=== PATIENT | female | born 1970 | race Caucasian/White ===

== ENCOUNTER 2021-11-24 11:11 | Emergency (ER) | payer SELFPAY ==
--- NOTE | 2021-11-24 12:41 | RAD REPORT ---
EXAM DESCRIPTION: CT - Head Brain Wo Cont - 11/24/2021 12:35 pm CLINICAL HISTORY: Head trauma, moderate-severe Fall, head injury, head trauma COMPARISON: C Spine Wo Con dated 11/24/2021 TECHNIQUE: All CT scans are performed using dose optimization technique as appropriate and may inclu de automated exposure control or mA/KV adjustment according to patient size. FINDINGS: No intracranial hemorrhage, hydrocephalus or extra-axial fluid collection.No areas of brai n edema or evidence of midline shift. The paranasal sinuses and mastoids are clear. The calvarium is intact. IMPRESSION: No acute intracranial abnormality.
--- NOTE | 2021-11-24 12:42 | RAD REPORT ---
EXAM DESCRIPTION: CT - C Spine Wo Con - 11/24/2021 12:35 pm CLINICAL HISTORY: Osteoarthritis, cervical COMPARISON: No comparisons TECHNIQUE: CT Scan was obtained of the cervical spine without contrast. Reformats were provided in t he sagittal and coronal plane. FINDINGS: No acute fracture of the cervical spine. No traumatic malalignment. No prevertebral edema. Multilevel cervical spondylosis with varying degrees of neural foraminal narrowing. This is advanced at the C6-7 and to lesser extent C5-6 levels. No suspicious thyroid nodules or lymphadenopathy. The lung apices are clear. IMPRESSION: No fracture or traumatic malalignment of the cervical spine.
--- NOTE | 2021-11-24 12:56 | ER ---
Nurse's Notes [facility] Name: Betsy Phillips Age: 51 yrs Sex: Female : 1970 Arrival Date: 11/24/2021 Time: 11:28 Bed 13 Private MD: Diagnosis: Unspecified injury of head, initial encounter Presentation: 11/24 11:34 Chief complaint: Patient states: "I am an alcoholic and I've been sober for 7 years and ab2 I relapsed last week and I fell on Sunday and hit my head. I went to [facility] in [place] and they did nothing. I have a headache, I am hallucinating, and I have a pins and needles sensation on my arms." Pt states her last drink was Sunday. Pt unsure if she had LOC. Pt c/o headache on the right side of her head. Pt has small laceration to left side fo forehead. Coronavirus screen: Vaccine status: Patient reports receiving the 2nd dose of the covid vaccine. Client denies travel out of the [place] in the last 14 days. At this time, the client does not indicate any symptoms associated with coronavirus-19. Ebola Screen: Patient negative for fever greater than or equal to 101.5 degrees Fahrenheit, and additional compatible Ebola Virus Disease symptoms Patient denies exposure to infectious person. Patient denies travel to an Ebola-affected area in the 21 days before illness onset. No symptoms or risks identified at this time. Mechanism of Injury: resulted from a fall, from a standing position. Initial Sepsis Screen: Does the patient meet any 2 criteria? No. Patient's initial sepsis screen is negative. Does the patient have a suspected source of infection? No. Patient's initial sepsis screen is negative. Risk Assessment: Do you want to hurt yourself or someone else? Patient reports no desire to harm self or others. 11:34 Method Of Arrival: Ambulatory ab2 11:34 Acuity: HUONG 3 ab2 12:51 Onset of symptoms is unknown. jg9 Triage Assessment: 11:38 General: Appears in no apparent distress. uncomfortable, Behavior is calm, cooperative, ab2 appropriate for age. Pain: Complains of pain in head. Neuro: Level of Consciousness is awake, alert, obeys commands, Oriented to person, place, time, situation, Appropriate for age Talent Analyst are equal bilaterally Moves all extremities. Gait is steady, Speech is normal, Facial symmetry appears normal, Intact Reports headache. Respiratory: Airway is patent Respiratory effort is even, unlabored, Respiratory pattern is regular, symmetrical. PULMONARY PHYSICIAN: 12:51 LMP N/A - Irregular menses jg9 Historical: - Allergies: 11:38 No Known Allergies; ab2 - PMHx: 11:38 None; ab2 - Immunization history:: Adult Immunizations up to date. - Social history:: Smoking status: Patient reports the use of cigarette tobacco products, smokes one-half pack cigarettes per day. - Family history:: not pertinent. Screenin:51 Abuse screen: Denies threats or abuse. Denies injuries from another. Nutritional jg9 screening: No deficits noted. Tuberculosis screening: No symptoms or risk factors identified. Fall Risk Fall in past 12 months (25 points). Assessment: 12:51 Reassessment: No changes from previously documented assessment. Patient and/or family jg9 updated on plan of care and expected duration. Pain level reassessed. Patient is alert, oriented x 3, equal unlabored respirations, skin warm/dry/pink. Vital Signs: 11:34 BP 137 / 92; Pulse 87; Resp 18; Temp 97.7(TE); Pulse Ox 99% on R/A; Weight 83.46 kg; ab2 Height 5 ft. 9 in. (175.26 cm); Pain 6/10; 12:55 BP 117 / 65; Pulse 66; Resp 14 S; Pulse Ox 98% on R/A; jg9 11:34 Body Mass Index 27.17 (83.46 kg, 175.26 cm) ab2 [place] Coma Score: 11:34 Eye Response: spontaneous(4). Verbal Response: oriented(5). Motor Response: obeys ab2 commands(6). Total: 15. 12:54 Eye Response: spontaneous(4). Verbal Response: oriented(5). Motor Response: obeys ma2 commands(6). Total: 15. ED Course: 11:28 Patient arrived in ED. am2 11:38 Triage completed. ab2 11:38 Arm band placed on right wrist. ab2 11:39 Paulette Strong RN is Primary Nurse. jg9 11:49 Katie Borges MD is Attending Physician. ma2 12:37 CT Head Brain wo Cont In Process Unspecified. EDMS 12:37 CT C Spine In Process Unspecified. EDMS 12:51 Patient has correct armband on for positive identification. Bed in low position. Call jg9 light in reach. Side rails up X 1. 13:14 No provider procedures requiring assistance completed. jg9 13:15 Patient did not have IV access during this emergency room visit. jg9 Administered Medications: No medications were administered Outcome: 12:55 Discharge ordered by . ma2 13:15 Discharged to home ambulatory. jg9 13:15 Condition: stable 13:15 Discharge instructions given to patient, Instructed on discharge instructions, follow up and referral plans. Demonstrated understanding of instructions, follow-up care. 13:15 Patient left the ED. jg9 Signatures: Dispatcher [employer] Nakia Mancilla am2 Katie Borges MD MD ma2 Paulette Strong, RN RN jg9 Brian [place]
--- NOTE | 2021-11-24 12:56 | EDPHYS ---
Physician Documentation [facility] Name: Betsy Phillips Age: 51 yrs Sex: Female : 1970 Arrival Date: 11/24/2021 Time: 11:28 Bed 13 Private MD: ED Physician Katie Borges HPI: 11/24 12:18 This 51 yrs old Female presents to ER via Ambulatory with complaints of Head ma2 Injury-Adult, Nausea, Arm Pain - shaky. 12:18 Associated signs and symptoms: Pertinent negatives: patient denies any alcohol ma2 consumption, headache, nausea, seizure, vomiting. Patient was drinking alcohol on Sunday and tripped fell head held in front, sustained abrasion to forehead, states she has headache since then. Mild constant. MOVERS: 12:51 LMP N/A - Irregular menses jg9 Historical: - Allergies: 11:38 No Known Allergies; ab2 - PMHx: 11:38 None; ab2 - Immunization history:: Adult Immunizations up to date. - Social history:: Smoking status: Patient reports the use of cigarette tobacco products, smokes one-half pack cigarettes per day. - Family history:: not pertinent. ROS: 12:18 Constitutional: Negative for fever, chills, and weight loss. ma2 12:18 All other systems are negative. Exam: 12:18 Constitutional: This is a well developed, well nourished patient who is awake, alert, ma2 and in no acute distress. Head/Face: Superficial forehead abrasion, otherwise normocephalic, atraumatic. Neck: Trachea midline, no thyromegaly or masses palpated, and no cervical lymphadenopathy. Supple, full range of motion without nuchal rigidity, or vertebral point tenderness. No Meningismus. Chest/axilla: Normal chest wall appearance and motion. Nontender with no deformity. No lesions are appreciated. Cardiovascular: Regular rate and rhythm with a normal S1 and S2. No gallops, murmurs, or rubs. Normal PMI, no JVD. No pulse deficits. Respiratory: Lungs have equal breath sounds bilaterally, clear to auscultation and percussion. No rales, rhonchi or wheezes noted. No increased work of breathing, no retractions or nasal flaring. Abdomen/GI: Soft, non-tender, with normal bowel sounds. No distension or tympany. No guarding or rebound. No evidence of tenderness throughout. Back: No spinal tenderness. No costovertebral tenderness. Full range of motion. MS/ Extremity: Pulses equal, no cyanosis. Neurovascular intact. Full, normal range of motion. Neuro: Awake and alert, GCS 15, oriented to person, place, time, and situation. Cranial nerves II-XII grossly intact. Motor strength 5/5 in all extremities. Sensory grossly intact. Cerebellar exam normal. Normal gait. Vital Signs: 11:34 BP 137 / 92; Pulse 87; Resp 18; Temp 97.7(TE); Pulse Ox 99% on R/A; Weight 83.46 kg; ab2 Height 5 ft. 9 in. (175.26 cm); Pain 6/10; 12:55 BP 117 / 65; Pulse 66; Resp 14 S; Pulse Ox 98% on R/A; jg9 11:34 Body Mass Index 27.17 (83.46 kg, 175.26 cm) ab2 [place] Coma Score: 11:34 Eye Response: spontaneous(4). Verbal Response: oriented(5). Motor Response: obeys ab2 commands(6). Total: 15. 12:54 Eye Response: spontaneous(4). Verbal Response: oriented(5). Motor Response: obeys ma2 commands(6). Total: 15. MDM: 12:54 Differential diagnosis: Contusion of Hematoma on Intracranial bleed- Concussion. Data ma2 reviewed: vital signs, nurses notes, EMS record. Counseling: I had a detailed discussion with the patient and/or guardian regarding: the historical points, exam findings, and any diagnostic results supporting the discharge/admit diagnosis, the presence of at least one elevated blood pressure reading (>120/80) during this emergency department visit, the need for outpatient follow up. Response to treatment: the patient's symptoms have markedly improved after treatment. 12:55 Patient medically screened. ma2 11/24 12:06 Order name: CT Head Brain wo Cont; Complete Time: 12:54 ma2 11/24 12:20 Order name: CT C Spine; Complete Time: 12:54 ma2 Administered Medications: No medications were administered Disposition Summary: 11/24/21 12:55 Discharge Ordered Location: Home ma2 Condition: Stable ma2 Diagnosis - Unspecified injury of head, initial encounter ma2 Followup: ma2 - With: Private Physician - When: Tomorrow - Reason: If symptoms return, Continuance of care Discharge Instructions: - Discharge Summary Sheet ma2 - Head Injury, Adult ma2 Forms: - Medication Reconciliation Form ma2 - Thank You Letter ma2 - Antibiotic Education ma2 - Prescription Opioid Use ma2 Signatures: Dispatcher [employer] EDKatie Ortega MD MD ma2 Brian North
[2021-11-24 13:29] VITALS: TEMP 97.7
[2021-11-24 13:30] VITALS: BP 117/65; O2SAT 98
== END 2021-11-24 13:15 | disposition home or self-care (01) ==
LOC: ER 11:11
DX: S09.90XA Unspecified injury of head, initial encounter (principal); W01.0XXA Fall on same level from slipping, tripping and stumbling without subsequent striking against object, initial encounter; Y93.9 Activity, unspecified; Y92.9 Unspecified place or not applicable; F17.210 Nicotine dependence, cigarettes, uncomplicated
CPT/HCPCS: 70450; 72125; 99283